=== PATIENT | male | born 1995 | race Caucasian/White ===

== ENCOUNTER 2021-03-06 02:58 | Day surgery (SDC) | payer OTHER, SELFPAY ==
[2021-02-27 15:59] VITALS: BMI 27.6
--- NOTE | 2021-03-05 13:45 | WPDANESEPPF ---
Anes - Initial Pre Proc Eval Procedure: Operation Date: 03/06/21 07:30 Proposed Procedures p Distal Fifth Metatarsal Osteotomy Right Foot Bunionectomy - Johan Cohen JR, MD Date/Time: 03/05/21 13:45 Surgeon: Johan Cohen JR, MD Pre Op Diagnosis: bunionette deformity Patient Data Age: 25 Gender: M Height: 1.75 m Weight: 85 kg Allergies Allergy/AdvReac Type Severity Reaction Status Date / Time No Known Allergies Allergy Verified 03/06/21 06:18 Home Medications Medication Instructions Recorded Confirmed Type No Home Medications 02/27/21 02/27/21 History Patient hx anesthesia problems: none Family hx anesthesia problems: none [facility] Past Medical History Medical History (Updated 03/05/21 @ 13:45 by Kb Page MD) Healthy adult Social History Social History Smoking status: Never smoker Alcohol intake: current Drinks per week: 1 Living arrangements: with roommate(s) Anes - Eval Final PreProcedure Day of Procedure 03/05/21 13:45 Patient weight: normal Heart: regular rate and rhythm Lungs: clear to auscultation Airway: Mallampati scale Neurological: alert and oriented Last oral intake: >/= 8 hours ASA classification: I Emergent: no Anesthetic plan: proceed Anesthesia type and monitoring: general GIVS and standard monitoring Informed Consent: The patient's anesthetic plan and its attendant risks and benefits were discussed with the patient/family/POA. Questions were solicited and answers provided to the satisfaction of the patient/family/POA.
--- NOTE | ~2021-03-06 | XR_ITS ---
XR surgery orthopedic DATE: 03/06/2021 08:20 INDICATION: Fifth metatarsal osteotomy TECHNIQUE: 2 spot C-arm images 11 seconds fluoroscopy time 1.2801 cGycm2 total DAP COMPARISON: None FINDINGS: 2 screws are noted at the osteotomy site at the distal fifth metatarsal shaft. IMPRESSION: Distal shaft fifth metatarsal osteotomy Reviewed, dictated and finalized at [facility]. Reviewed, dictated and finalized at [facility].
[2021-03-06 07:09] VITALS: BP 125/76; PULSE 65; RESP 18; TEMP 36.8; O2SAT 100; BMI 26.9
--- NOTE | 2021-03-06 07:11 | WPDHPUPDATE1 ---
History and Physical Update Update Date/Time: 03/06/21 07:11 History and Physical has been reviewed, including an updated exam of the patient. There are NO changes in the patient's condition. Risks, benefits, and alternatives have been discussed and questions answered. Patient agrees to proceed with procedure.
[2021-03-06] MEDS: LACTATED RINGERS 1,000 ML 30 ML IV CONT (07:22)
[2021-03-06] MEDS: ceFAZolin 2 GM/D5W 50 ML 2 GM/50 ML BAG IVPB (07:30)
[2021-03-06] MEDS: LIDOCAINE HCL 2% PF INJ 5 ML VIAL 10 ML INFILTRATE (08:04)
[2021-03-06 08:35] VITALS: BP 113/56; PULSE 81; RESP 8; O2SAT 99
--- NOTE | 2021-03-06 08:44 | W.PM.PROC2 ---
Procedure Note - Detailed Date of Procedure 03/06/21 Pre-op Diagnosis bunionette deformity right foot Post-op Diagnosis same Procedure Performed Distal fifth metatarsal osteotomy bunionectomy [facility] foot Surgeon Johan Cohen JR, DPMamadou Anesthesia MAC and local Indications Painful bunionette deformity right foot Description of Procedure Under mild sedation, the patient was brought in to the operating room, placed on the operating table in the supine position. A pneumatic ankle tourniquet was placed about the patient's ankle. Following monitored anesthesia care, local anesthesia was obtained about the foot utilizing 20 mL of a 1:1 mixture of 2% Lidocaine plain and 0.5% Marcaine plain with a modified proximal Mcknight block. The foot was then scrubbed, prepped, and draped in the usual aseptic manner. An Esmarch bandage was then used to exsanguinate the patient's foot and the pneumatic ankle tourniquet was then inflated. Attention was directed to the dorsal lateral aspect of the fifth metatarsal head where a 2 cm incision was made just lateral to the extensor digitorum longus tendon to the fifth digit to the shaft of the fifth metatarsal. The incision was continued deep down through the subcutaneous tissues using sharp and blunt dissection. All bleeders were cauterized as necessary.A full-length periosteal incision was made overlying the fifth metatarsal distally. A McGlamry Elevator was used to free the plantar structures to the fifth metatarsal head. Next, a sagittal bone saw was used to make a chevron osteotomy starting along the lateral aspect of the distal metaphyseal diaphyseal junction of the 5th metatarsal. The 5th metatarsal was repositioned medially and held in place with two guide wires for two Tish 2.0 partially threaded cannulated screw which were driven from dorsal to plantar across the osteotomy site with excellent compression noted. The remaining lateral shelf was resected with the saw blade and rough edges made smooth with a rotary power chito. Fluoroscopy was used to make sure the fourth intermetatarsal angle was reduced and that the 5th metatarsal phalangeal joint was congruous. Next, the periosteum and capsular structures overlying the 5th metatarsophalangeal joints were reapproximated with 4-0 Vicryl. Next, subcutaneous structures were reapproximated and coapted utilizing 4-0 Vicryl. Next, the skin was reapproximated and coapted utilizing 4-0 Monocryl in running subcuticular suture fashion technique.Under mild sedation, the patient was brought in to the operating room, placed on the operating table in the supine position. Upon completion of the procedure, the incision was dressed with Steri-Strips, Adaptic, 4x4s, Kerlix, and Coban. The pneumatic ankle tourniquet was then deflated and a prompt hyperemic response was noted to all digits of the right foot. The posterior splint was then applied. The patient did very well with the procedure and the anesthesia. The patient was transferred to the recovery room with vital signs stable and vascular status intact to all toes of the right foot. Following a period of postoperative monitoring, the patient will be discharged home on the following written and oral postoperative instructions: 1. The patient should keep the dressing clean, dry, and intact. Use a cast protector bag with showers. 2. The patient will be strictly nonweightbearing with crutches/knee scooter. 3. Patient should ice and elevate the right foot when at rest. 4. The patient is to contact Dr. Cohen for all postop care and if any problems arise. 5. Prescriptions were written for Percocet 5/325 dispensed 40 to be taken 1 p.o. q.4-6 hours as needed for severe pain. Furthermore, Aspirin 325 mg should be taken starting 24 hours after surgery once daily for 14 days to prevent DVT. Estimated Blood Loss 1 Drains No Packing No Pathology none sent Complications No immediate complications [facility]
[2021-03-06 09:05] VITALS: BP 111/63; PULSE 70; O2SAT 98
--- NOTE | 2021-03-06 09:25 | SUR.PHASEII ---
Patient states he knows how to use crutches just needs a pair to go home with. RN sent crutches home with patient and told him to follow-up with office if he wants a knee scooter.
[2021-03-06 09:35] VITALS: BP 117/64; PULSE 72
--- NOTE | 2021-03-06 09:54 | SUR.PHASEII ---
Patient states, I have moved in the past couple of weeks and have no idea where that paperwork from my visit in the office on February 03 is. RN is getting a new prescription from the office for the patient.
--- NOTE | 2021-03-06 10:29 | SUR.PHASEII ---
Vitals stable. Patient had to wait for new script from office before discharge.
== END 2021-03-06 10:30 | disposition home or self-care (01) ==
PROVIDERS: Visit Provider Podiatrist Foot & Ankle Surgery
PROC: (CPT 28299; principal; 2021-03-06 07:30)
DX: M21.621 Bunionette of right foot (principal)
CPT/HCPCS: 28110; J0690; J1100; J2250; J2405; J2704; J3010; J7120